=== PATIENT | male | born 1955 | race Caucasian/White ===

== ENCOUNTER 2021-01-08 14:05 | Outpatient (CLI) | payer OTHER ==
[2021-01-08] MEDS ORDERED: OMNIPAQUE 350 MG/ML, 75ML BOTTLE ONE (15:51)
== END 2021-01-08 23:59 | disposition home or self-care (01) ==
LOC: RAD 14:05
PROVIDERS: ATTEND Family Medicine
DX: R91.8 Other nonspecific abnormal finding of lung field (principal); R79.89 Other specified abnormal findings of blood chemistry; R55 Syncope and collapse; M51.34 Other intervertebral disc degeneration, thoracic region; I70.0 Atherosclerosis of aorta
CPT/HCPCS: 71275; 93970; Q9967